=== PATIENT | female | born 1930 | race Caucasian/White ===

== ENCOUNTER 2016-12-03 06:27 | Day surgery (SDC) | payer MEDICARE, BC ==
[2016-12-03] MEDS ORDERED: Sodium Tetradecyl Sulfate 1% 20 MG/2 ML SDV ONE ×2 (06:57→09:12)
[2016-12-03] MEDS ORDERED: Lidocaine 1% with EPINEPHrine 1:100,000 50 ML MDV ONE (06:58)
[2016-12-03] MEDS ORDERED: Sodium Chloride 0.9% 10 ML ONE ×2 (06:58→09:12)
[2016-12-03] MEDS ORDERED: Sodium Chloride 0.9% 1,000 ML IV SCH (07:00)
[2016-12-03] MEDS: Lidocaine 1% w/EPINEPHrine 50 ML, Sodium Bicarbonate 5 MEQ in Sodium Chloride 0.9% 950 ML INJECT SCH ×2 (07:50→08:50)
[2016-12-03] MEDS ORDERED: Propofol 200 MG/20 ML SDV ONE ×2 (07:51→08:28)
[2016-12-03 10:53] VITALS: BP 123/75
--- NOTE | 2016-12-04 09:14 | OR ---
DATE OF PROCEDURE: 12/03/2016 PROCEDURES: 1. Radiofrequency ablation of left greater saphenous vein. 2. Radiofrequency ablation of left lesser saphenous vein. 3. Sclerotherapy, left leg, multiple. COMPLICATIONS: None. FORTUNE TELLER: None. ANESTHESIA: MAC/local. RISKS: Risks, benefits, alternatives, and limitations, including, but not limited to infection, bleeding, DVT formation, and other risks were explained to the patient, and the patient wished to proceed. PREOPERATIVE DIAGNOSIS: Venous insufficiency. POSTOPERATIVE DIAGNOSIS: Venous insufficiency. PROCEDURE IN DETAIL: The patient was placed in supine position. The left LSV would be addressed first. This was accessed at the level of the ankle. This was accessed using a 21-gauge needle, then exchanged for a 35,000th wire then exchanged for a 7-Polish sheath after anesthetizing with lidocaine mixed with epinephrine. The sheath was then introduced and advanced to 3 cm from the deep junction. Tumescent fluid was injected in a 1 cm jacket around this and verified a second and third time. The RFA probe was deployed x2 proximally and distally and x1 in all other segments. Direct even pressure was performed during this aspect of the procedure. The sheath and device were then removed. Direct pressure was held for 10 minute. Dermabond was applied. Radiofrequency ablation of left greater saphenous vein was then performed in same manner, same fashion, same technique, and same sequence using the same equipment. This was also verified a second and third time. Sclerotherapy was then performed on the left leg using 0.33% sodium tetradecyl. This was always drawn back to ensure intravascular injection only. No more than 2 mL was injected in one location. There were six of these, and they ranged up from 1 to 5 cm. Dressings were applied. The patient tolerated the procedure well. Rajesh Ma MD /[id number]
== END 2016-12-03 10:35 | disposition home or self-care (01) ==
LOC: JP.SDS 06:27
PROVIDERS: ATTEND Surgery
DX: I87.2 Venous insufficiency (chronic) (peripheral) (principal); I10 Essential (primary) hypertension; I83.892 Varicose veins of left lower extremity with other complications; E11.9 Type 2 diabetes mellitus without complications; E03.9 Hypothyroidism, unspecified; E78.00 Pure hypercholesterolemia, unspecified; Z88.1 Allergy status to other antibiotic agents
CPT/HCPCS: 36471; 36475; 36476; J1642; J2704; J7040; J7050; J3490

== ENCOUNTER 2020-10-05 19:56 | Emergency (ER) | payer MEDICARE, MEDICAID ==
[2020-10-05 20:03] VITALS: BP 187/91; PULSE 74
--- NOTE | 2020-10-05 21:29 | CRLCT ---
INDICATION: Right hip pain. COMPARISON: Plain film same date. TECHNIQUE: Multi detector noncontrast images of both hips with axial coronal and sagittal reformats of the right hip. FINDINGS: Mild osteoarthritis of the visualized sacroiliac joints. Hips are appropriately located. No right hip fracture. No joint effusion. Minor osteoarthritis of both hips. No visualized pelvic fracture. Moderate stool in the redundant colon. IMPRESSION: No right hip fracture. No acute traumatic abnormality. Constipation. Please note that all CT scans at this facility use dose modulation, iterative reconstruction, and/or weight-based dosing when appropriate to reduce radiation dose to as low as reasonably achievable. Dictated by Naseem Ford MD @ Oct 07 2020 8:26AM Signed by Dr. Naseem Ford @ Oct 07 2020 8:28AM
--- NOTE | 2020-10-05 21:55 | EDM.PDOC ---
ED HPI GENERAL MEDICAL PROBLEM - General Chief Complaint: Lower Extremity Injury/Pain Stated Complaint: MEDICAL VIA [facility] Time Seen by Provider: 10/05/20 20:20 Source of Information: Reports: Patient, EMS History Limitations: Reports: No Limitations - History of Present Illness INITIAL COMMENTS - FREE TEXT/NARRATIVE: pt arrived with a externally totated left leg which was painful to move. She had fallen earlier this pm. Onset: Today Duration: Hour(s): Location: Reports: Lower Extremity, Right Associated Symptoms: Reports: No Other Symptoms - Related Data Allergies Allergy/AdvReac Type Severity Reaction Status Date / Time amoxicillin Allergy Numbness Verified 10/05/20 21:10 clindamycin Allergy Cannot Verified 10/05/20 21:10 Remember Home Meds: Home Meds Levothyroxine 125 mcg PO DAILY 06/01/13 [History] Simvastatin 20 mg PO DAILY 06/01/13 [History] Digoxin [Lanoxin] 125 mcg PO DAILY@1300 #90 tablet 06/03/13 [Rx] Cyanocobalamin (Vitamin B-12) [Vitamin B-12] 500 mcg ORAL.INH DAILY 01/29/15 [History] metFORMIN [Glucophage] 500 mg PO WITHDINNER 12/01/16 [History] Citalopram Hydrobromide [Celexa] 20 mg PO DAILY 07/20/18 [History] Multivitamin [Multi-Day Vitamins] 1 tab PO BID 07/20/18 [History] metFORMIN HCl [Metformin HCl] 1,000 mg PO WITHBREAKFAST 07/20/18 [History] Docusate Sodium [Colace] 1 tab PO DAILY 10/05/20 [History] Fludrocortisone [Florinef] 1 tab PO DAILY 10/05/20 [History] Memantine [Namenda] 1 tab PO BID 10/05/20 [History] Metoprolol Tartrate [Lopressor] 12.5 mg PO BID 10/05/20 [History] Pantoprazole Sodium [Protonix] 1 tab PO DAILY 10/05/20 [History] Past Medical History HEENT History: Reports: Cataract, Impaired Vision, Sinusitis Cardiovascular History: Reports: Afib, High Cholesterol, Hypertension, Other (See Below) Other Cardiovascular History: dizziness Gastrointestinal History: Reports: Cholelithiasis, Colon Polyp Genitourinary History: Reports: Urinary Incontinence 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: , 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 Musculoskeletal History: Reports: Osteoarthritis Neurological History: Reports: Migraines, TIA Psychiatric History: Reports: Anxiety, Depression Endocrine/Metabolic History: Reports: Diabetes, Type II, Hypothyroidism Hematologic History: Reports: Anemia - Infectious Disease History Infectious Disease History: Reports: Chicken Pox, Measles, Mumps, Shingles - Past Surgical History HEENT Surgical History: Reports: Cataract Surgery, Tonsillectomy Cardiovascular Surgical History: Reports: Other (See Below) Other Cardiovascular Surgeries/Procedures: Cardioversion GI Surgical History: Reports: Appendectomy, Cholecystectomy, Colonoscopy, Hernia, Abdominal Female Surgical History: Reports: Section, D&C Endocrine Surgical History: Reports: None Neurological Surgical History: Reports: None Musculoskeletal Surgical History: Reports: None Social & Family History - Family History Family Medical History: No Pertinent Family History - Tobacco Use Tobacco Use Status *Q: Never Tobacco User - Caffeine Use Caffeine Use: Reports: None - Living Situation & Occupation Living situation: Reports: , with Spouse Occupation: Retired Review of Systems - Review of Systems Review Of Systems: See Below Constitutional: Reports: No Symptoms Eyes: Reports: No Symptoms Ears: Reports: No Symptoms Nose: Reports: No Symptoms Mouth/Throat: Reports: No Symptoms Respiratory: Reports: No Symptoms Cardiovascular: Reports: No Symptoms GI/Abdominal: Reports: No Symptoms Genitourinary: Reports: No Symptoms Musculoskeletal: Reports: Other (muscle spasm in the rt buttock area. ) Skin: Reports: No Symptoms Neurological: Reports: No Symptoms ED EXAM, GENERAL - Physical Exam Exam: See Below Free Text/Narrative:: pt arrived with pain in the rt hip and the leg was externally rotated. Exam Limited By: No Limitations General Appearance: Alert, Anxious, Moderate Distress Ears: Normal TMs Nose: Normal Inspection Throat/Mouth: Normal Inspection Head: Atraumatic Neck: Normal Inspection Respiratory/Chest: No Respiratory Distress Cardiovascular: Regular Rate, Rhythm GI/Abdominal: Soft, Non-Tender (Female) Exam: Deferred Rectal (Female) Exam: Deferred Back Exam: Other (pt is tender over the rt buttock area. ) Extremities: Normal Inspection Neurological: Alert, Oriented, Normal Cognition Psychiatric: Anxious Course - Vital Signs Last Recorded V/S: Last Vital Signs Temp 36.7 C 10/05/20 21:54 Pulse 74 10/05/20 21:54 Resp 16 10/05/20 21:54 BP 187/91 H 10/05/20 21:54 Pulse Ox 94 L 10/05/20 21:54 - Orders/Labs/Meds Orders: Active Orders 24 hr Category Date Time Status Hip Min 2V or 3V w Pelvis Rt [CR] Stat Exams 10/05/20 19:57 Taken - Re-Assessments/Exams Free Text/Narrative Re-Assessment/Exam: 10/05/20 22:00 xrays showed no fracture. A cat scan was obtained which was neg for fracture Departure - Departure Time of Disposition: 21:53 Disposition: Home, Self-Care 01 Condition: Fair Clinical Impression: Spasm of muscle of lower back - Discharge Information Referrals: PCP,None [Primary Care Provider] - Forms: ED Department Discharge Care Plan Goals: baclofen 10 mg 1 tab daily to relax muscle, tylenol 650 tid for the next 5 days. cool pack to the area, Sepsis Event Note (ED) - Focused Exam Vital Signs: Vital Signs Temp Pulse Resp BP Pulse Ox 10/05/20 21:54 36.7 C 74 16 187/91 H 94 L 10/05/20 20:01 36.7 C 74 16 187/91 H 94 L - My Orders Last 24 Hours: My Active Orders 10/05/20 19:57 Hip Min 2V or 3V w Pelvis Rt [CR] Stat - Assessment/Plan Last 24 Hours: My Active Orders 10/05/20 19:57 Hip Min 2V or 3V w Pelvis Rt [CR] Stat
--- NOTE | 2020-10-07 09:41 | CR ---
Hip Min 2V or 3V w Pelvis Rt CLINICAL HISTORY: Fall, right hip pain FINDINGS: No fracture or dislocation is identified. There is mild acetabular spurring. Articular surfaces are smooth. Moderate stool obscures some sacral detail. Impression: No fracture seen
== END 2020-10-05 22:37 | disposition home or self-care (01) ==
LOC: JP.ED 19:56
DX: M62.830 Muscle spasm of back (principal); I48.91 Unspecified atrial fibrillation; E78.00 Pure hypercholesterolemia, unspecified; I10 Essential (primary) hypertension; E11.9 Type 2 diabetes mellitus without complications; E03.9 Hypothyroidism, unspecified; Z88.0 Allergy status to penicillin; Z88.1 Allergy status to other antibiotic agents; Z79.899 Other long term (current) drug therapy
CPT/HCPCS: 73502-26-RT; 73502-RT; 73700-RT; 99283; 99284-25